=== PATIENT | male | born 1965 | race Caucasian/White ===

== ENCOUNTER 2017-02-22 15:41 | Emergency (ER) | payer MEDICAID, OTHER ==
--- NOTE | 2017-02-22 16:47 | C.PDOC ---
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 Patient states he was lifting heavy water bottles prior to the onset of his symptoms. Patient was unable to take pain medication because he is currently fasting. He reports applying cold compresses and Bengay to the area without relief Otherwise, he denies direct injury/trauma to the affected area, neck pain , urinary/bowl incontinence, saddle anesthesia, upper/lower extremity numbness/ weakness. Time Seen by Provider: 02/22/17 16:22 Chief Complaint (Nursing): Back Pain History Per: Patient History/Exam Limitations: no limitations Onset/Duration Of Symptoms: Hrs (2) Current Symptoms Are (Timing): Still Present Quality Of Discomfort: "Pain" Previous Symptoms: Back Pain. denies: Neck Pain Associated Symptoms: denies: Incontinence, New Weakness, New Numbness Additional History Per: Patient Past Medical History Reviewed: Historical Data, Nursing Documentation, Vital Signs Vital Signs: Last Vital Signs Temp 97.9 F 02/22/17 17:21 Pulse 55 L 02/22/17 17:21 Resp 18 02/22/17 17:21 BP 108/70 02/22/17 17:21 Pulse Ox 98 02/22/17 22:30 - Medical History PMH: Asthma Surgical History: Appendectomy Family History: States: Unknown Family Hx - Social History Hx Tobacco Use: No Hx Alcohol Use: No Hx Substance Use: No - Immunization History Hx Tetanus Toxoid Vaccination: No Hx Influenza Vaccination: No Hx Pneumococcal Vaccination: No Review Of Systems Genitourinary: Negative for: Incontinence Musculoskeletal: Positive for: Back Pain (b/l lower ), Other (+right hip pain ) . Negative for: Neck Pain Neurological: Negative for: Weakness, Numbness Physical Exam - Physical Exam Appears: Non-toxic, No Acute Distress, Other (sitting in chair ) Skin: Normal Color, Warm, Dry, No Ecchymosis Head: Atraumatic Eye(s): bilateral: Normal Inspection Oral Mucosa: Moist Neck: Normal ROM, No Midline Cervical Tenderness Chest: Symmetrical, No Tenderness Cardiovascular: Rhythm Regular, No Murmur Respiratory: Normal Breath Sounds, No Rales, No Rhonchi, No Wheezing Gastrointestinal/Abdominal: Soft, No Tenderness, No Guarding, No Rebound Back: Normal Inspection, No Vertebral Tenderness, No Paraspinal Tenderness, Other (mild diffuse lumbar back tenderness) Extremity: Normal ROM, No Tenderness, Capillary Refill (less than 2 seconds), No Deformity Extremity: Left: Hips Non-Tender, Right: Other (mild right sciatic notch tenderness), Bilateral: Atraumatic Neurological/Psych: Oriented x3, Normal Speech, Normal Cognition, Normal Motor, Normal Sensation Gait: Steady ED Course And Treatment O2 Sat by Pulse Oximetry: 98 (on RA) Pulse Ox Interpretation: Normal Progress Note: Patient received Toradol IM. Medical Decision Making Medical Decision Making: pt with mild relief after toradol, will d/c with ibuprofen and muscle relaxant. f/u pmd. Disposition Counseled Patient/Family Regarding: Diagnosis, Need For Followup, Rx Given - Disposition Referrals: [facility] [Outside] [facility] [Outside] Disposition: HOME/ ROUTINE Disposition Time: 17:06 Condition: IMPROVED Additional Instructions: Take ibuprofen by mouth every 6 hours (preferably with food); Take muscle relaxant at bedtime, makes you sleepy. You may also take acetaminophen. FOllow up with your doctor or in medical clinical a few days. Avoid heavy lifting. 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 - Scribe Statement The provider has reviewed the documentation as recorded by the Scribe (Magaly Milner) All medical record entries made by the Scribe were at my direction and personally dictated by me. I have reviewed the chart and agree that the record accurately reflects my personal performance of the history, physical exam, medical decision making, and the department course for this patient. I have also personally directed, reviewed, and agree with the discharge instructions and disposition.
[2017-02-22 17:22] VITALS: BP 108/70; PULSE 55; RESP 18; TEMP 97.9
[2017-02-22 19:50] VITALS: O2SAT 98
== END 2017-02-22 17:25 | disposition home or self-care (01) ==
LOC: C.ER 15:41
DX: M54.5 Low back pain (principal)
CPT/HCPCS: 96372; 99283; J1885

== ENCOUNTER 2017-03-15 00:43 | Emergency (ER) | payer OTHER ==
[2017-03-15 00:58] VITALS: BP 118/79; PULSE 61; RESP 14; TEMP 97.6; O2SAT 98
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
== END 2017-03-15 01:21 | disposition home or self-care (01) ==
LOC: C.ER 00:43
DX: L23.7 Allergic contact dermatitis due to plants, except food (principal)

== ENCOUNTER 2018-06-24 16:13 | Emergency (ER) | payer OTHER ==
[2018-06-24 16:21] VITALS: RESP 18; O2SAT 97
--- NOTE | 2018-06-24 17:20 | RAD ---
PROCEDURE: Radiographs of the Left Shoulder HISTORY: LEFT SHOULDER PAIN AFTER FALL COMPARISON: None. FINDINGS: BONES: No acute displaced fracture. The distal clavicle and underlying ribs appear intact. JOINTS: No acute dislocation. Small calcification adjacent to the overall head, likely calcific tendinitis. SOFT TISSUES: Soft tissues appear unremarkable. No evidence of radiopaque foreign body. IMPRESSION: No acute displaced fracture or dislocation evident. If symptoms persist or if there is continued clinical concern, x-ray follow-up in 7-10 days should be considered. Evidence of calcific tendonitis, left shoulder.
--- NOTE | 2018-06-24 17:25 | RAD ---
Date of service: 06/24/2018 PROCEDURE: Radiographs of the Lumbar Spine. HISTORY: LOW BACK PAIN AFTER FALL COMPARISON: CT abdomen and pelvis without contrast performed 07/28/13 FINDINGS: BONES: Alignment appears satisfactory. No acute displaced fracture or subluxation identified. Facet hypertrophy. Mild degenerative changes including small anterior osteophytes. DISC SPACES: Unremarkable. OTHER FINDINGS: Mild constipation. IMPRESSION: Degenerative changes. Mild constipation.
--- NOTE | 2018-06-24 17:46 | CT ---
Date of service: 06/24/2018 PROCEDURE: CT HEAD WITHOUT CONTRAST. HISTORY: HEAD INJURY R/O BLEED COMPARISON: None available. TECHNIQUE: Axial computed tomography images were obtained through the head/brain without intravenous contrast. Radiation dose: Total exam DLP = 1032.72 mGy-cm. This CT exam was performed using one or more of the following dose reduction techniques: Automated exposure control, adjustment of the mA and/or kV according to patient size, and/or use of iterative reconstruction technique. FINDINGS: HEMORRHAGE: No intracranial hemorrhage. BRAIN: No mass effect or edema. The bowles-white matter differentiation appears intact. Please note that MRI with diffusion imaging is more sensitive in the detection of acute ischemic event. VENTRICLES: No hydrocephalus. CALVARIUM: Unremarkable. PARANASAL SINUSES: Unremarkable as visualized. No significant inflammatory changes. MASTOID AIR CELLS: Unremarkable as visualized. No inflammatory changes. OTHER FINDINGS: Opacification of the left external auditory canal, likely cerumen. IMPRESSION: No acute intracranial pathology identified. Additional findings as above.
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
[2018-06-24 18:19] VITALS: BP 110/74; PULSE 69; TEMP 98.4
== END 2018-06-24 18:22 | disposition home or self-care (01) ==
LOC: C.ER 16:13
DX: S00.03XA Contusion of scalp, initial encounter (principal); S33.5XXA Sprain of ligaments of lumbar spine, initial encounter; S43.402A Unspecified sprain of left shoulder joint, initial encounter; W19.XXXA Unspecified fall, initial encounter